=== PATIENT | female | born 1965 | race Caucasian/White ===

== ENCOUNTER 2023-01-06 11:26 | Outpatient (CLI) | payer OTHER, SELFPAY ==
[2023-01-06 11:51] LABS: Basophils Absolute Auto 0.04 K/mm3 (0.00-0.10); Basophils Percent Auto 0.6 % (0.0-1.0); Eosinophils Absolute Auto 0.07 K/mm3 (0.02-0.50); Eosinophils Percent Auto 1.1 % (1.0-6.0); Hematocrit 41.9 % (35.0-49.0); Hemoglobin 13.7 g/dL (12.0-15.0); Immature Granulocyte Absolute 0.01 K/mm3 (0.00-0.00); Immature Granulocyte Percent A 0.2 % (0.0-0.0); Lymphocytes Absolute Auto 2.19 K/mm3 (1.10-4.50); Lymphocytes Percent Auto 35.2 % (18.0-42.0); Mean Corpuscular HGB Conc 32.7 g/dL (32.0-36.0); Mean Corpuscular Hemoglobin 29.7 pg (27.0-31.0); Mean Corpuscular Volume 90.9 fL (78.0-102.0); Mean Platelet Volume 10.6 fl (9.2-11.8); Monocytes Absolute Auto 0.64 K/mm3 (0.10-0.90); Monocytes Percent Auto 10.3 % (2.0-11.0); Neutrophils Absolute Auto 3.3 K/mm3 (1.7-7.2); Neutrophils Percent Auto 52.6 % (50.0-70.0); Platelet Count Result 213 K/mm3 (150-420); Red Blood Count 4.61 M/mm3 (4.20-5.40); Red Cell Distribution Width 11.9 % (11.6-14.4); White Blood Count 6.2 K/mm3 (4.8-10.8)
[2023-01-06 12:44] LABS: Alanine Aminotransferase 27 U/L (14-59); Alkaline Phosphatase 86 U/L (46-116); Anion Gap 9 mmol/L (8-16); Aspartate Amino Transferase 14 U/L (15-37); Bilirubin,Total 0.4 mg/dL (0.00-1.00); Blood Urea Nitrogen 11 mg/dL (7-18); Calcium 9.3 mg/dL (8.5-10.1); Carbon Dioxide 28 mmol/L (21-32); Chloride 108 mmol/L (98-108); Cholesterol 190 mg/dL (0-200); Estimated Glomerular Filt Rate > 60; Glucose 99 mg/dL (70-99); HDL Direct 58 mg/dL (40-60); LDL Cholesterol Calculated 113 mg/dL (<130); Osmolality Calculated 299 mOsm/kg (285-295); Potassium 4.2 mmol/L (3.5-5.1); Sodium 145 mmol/L (136-145); Total Protein 6.8 g/dL (6.4-8.2); Triglycerides 95 mg/dL (0-150)
[2023-01-06 13:03] LABS: Thyroid Stimulating Hormone Reflex 0.99 u/IU/mL (0.36-3.74)
== END 2023-01-06 11:27 | disposition home or self-care (01) ==
LOC: CHSLAB 11:27
PROVIDERS: PCP Family Medicine; Visit Provider Family Medicine
DX: Z00.00 Encounter for general adult medical examination without abnormal findings (principal); E11.9 Type 2 diabetes mellitus without complications; E04.1 Nontoxic single thyroid nodule
CPT/HCPCS: 36415; 80053; 80061; 84443; 85025

== ENCOUNTER 2023-01-11 09:10 | Emergency (ER) | payer OTHER, SELFPAY ==
--- NOTE | ~2023-01-11 | CT_ITS ---
EXAMINATION: CT soft tissue neck w con DATE: 01/11/2023 10:46 INDICATION: Left anterior neck mass. TECHNIQUE: Computed tomography (CT) of the neck was performed with 75 mL Omnipaque-350 intravenous co ntrast. Automated exposure control and iterative reconstruction technique were employed. The dose-fili gth product was 504.32 mGy-cm. COMPARISON: None FINDINGS: There are nodules in the thyroid measuring up to 24 mm. There is a skin marker overlying th e thyroid. There are no pathologically enlarged lymph nodes. The cervical carotid arteries are normal . There is severe cervical spondylosis. There is mild chronic height loss of T3 and T4 vertebral bodi es. IMPRESSION: 1. Multinodular goiter. Thyroid ultrasound is recommended for risk stratification. Reviewed, dictated and finalized at location E. IMPRESSION: 1. Multinodular goiter. Thyroid ultrasound is recommended for risk stratificati on.
[2023-01-11 09:12] VITALS: BP 168/88; PULSE 88; RESP 18; TEMP 37; O2SAT 98
--- NOTE | 2023-01-11 09:20 | ED.NECK ---
HPI - Neck Pain/Injury General Chief Complaint: Unspecified Stated Complaint: throat issue Time Seen by Provider: 01/11/23 09:18 Source: patient Mode of arrival: ambulatory Limitations: no limitations History of Present Illness HPI Narrative: 57-year-old female no significant past medical history presents to the ER with a one-week history of -- lump measuring 1 cm on the left side of the neck. She complains of hoarseness of voice in the morning. It is nontender. No dysphagia. she 1st noticed test 1 week ago MD complaint: other Relieving factors: none Exacerbating factors: none Treatments prior to arrival: none Related Data Home Medications Medication Instructions Recorded Confirmed No Home Medications 07/22/19 01/11/23 Allergies Allergy/AdvReac Type Severity Reaction Status Date / Time Penicillins Allergy Unknown RASH Verified 01/11/23 10:49 codeine AdvReac Unknown N/V; SLOW Verified 01/11/23 10:49 HEART RATE Review of Systems Review of Systems: All systems reviewed & are unremarkable except as noted in HPI and below Constitutional: Constitutional: Reports as per HPI and Reports no additional constitutional complaints Eyes: Eyes: Reports as per HPI and Reports no additional eye complaints ENT: Reports system reviewed and no additional complaints, except as documented and Reports as per HPI Comments: 1 cm swelling over the left anterior neck. Cardiovascular: Cardiovascular: Reports as per HPI and Reports no additional cardiovascular complaints Respiratory: Respiratory: Reports as per HPI and Reports no additional respiratory complaints Gastrointestinal: Gastrointestinal: Reports as per HPI and Reports no additional gastrointestinal complaints Genitourinary: Genitourinary: Reports no additional female genitourinary complaints and Reports as per HPI Musculoskeletal: Musculoskeletal: Reports no additional musculoskeletal complaints and Reports as per HPI Integumentary/Breasts: Skin/Breast: Reports system reviewed and no additional complaints, except as docu and Reports as per HPI Neurologic: Reports system reviewed and no additional complaints, except as documented and Reports as per HPI Psychiatric: Psychiatric: Reports no additional psychiatric complaints and Reports as per HPI Endocrine: Endocrine: Reports no additional endocrine complaints and Reports as per HPI Hematologic/Lymphatic: Hematologic/Lymphatic: Reports no additional hematologic/lymphatic complaints and Reports as per HPI Allergic/Immunologic: Allergic/Immunologic: Reports no additional allergic/immunologic complaints and Reports as per HPI [facility] Past Medical History Medical History (Updated 01/11/23 @ 11:22 by Eliud Ignacio MD) No active medical problems Surgical History Surgical History History of cholecystectomy 1992 History of tubal ligation 1991 Social History Social History Smoking status: Former smoker Exam Const: General: healthy appearing and no acute distress Orientation/consciousness: patient oriented x3 Limitations: no limitations HENMT: Head: normal to inspection Ears: external ears normal Face/Nose/Sinus: Normal external nose present Face and sinus: normal facial exam Mouth: Yes Normal oral and palatal mucosa present Throat: posterior oropharynx normal Eyes: Conjunctivae: conjunctivae normal Pupils: Equal, round and reactive pupils present EOM: EOMs intact bilaterally Direct Ophthalmoscopy: no photophobia Neck: Neck: normal visual inspection, no lymphadenopathy and no meningeal signs Other: 1 cm firm swelling on the left anterior neck. Nontender on palpation. No regional lymphadenopathy. The swelling moves with swallowing. Chest: Chest palpation & inspection: normal inspection of the chest Resp: Effort & Inspection: normal respiratory effort Auscultation:
[2023-01-11 10:10] LABS: Anion Gap 7 mmol/L (8-16); Blood Urea Nitrogen 12 mg/dL (7-18); Calcium 9.1 mg/dL (8.5-10.1); Carbon Dioxide 29 mmol/L (21-32); Chloride 105 mmol/L (98-108); Estimated CRCL calculation 68 ml/min; Estimated Glomerular Filt Rate 58; Glucose 85 mg/dL (70-99); Osmolality Calculated 290 mOsm/kg (285-295); Potassium 4.2 mmol/L (3.5-5.1); Sodium 141 mmol/L (136-145)
[2023-01-11] MEDS: LACTATED RINGERS 1,000 ML 999 ML IV CONT (10:44)
--- NOTE | 2023-01-11 11:34 | PC.NURSE ---
On 01/11/23, the student, [jamie davies ], provided care and completed [facility] documentation on this patient. I have reviewed the student's documentation and agree with the findings.
[2023-01-11 11:47] VITALS: BP 146/96; PULSE 84; RESP 18; TEMP 37.1; O2SAT 100
[2023-01-11 11:51] LABS: Free T4 Free Thyroxine 0.87 ng/dL (0.76-1.46); Thyroid Stimulating Hormone 1.21 uIU/mL (0.36-3.74)
[2023-01-11 11:52] LABS: Free T3 2.38 pg/mL (2.18-3.98)
== END 2023-01-11 11:53 | disposition home or self-care (01) ==
PROVIDERS: Emergency Provider Internal Medicine Critical Care Medicine; PCP Family Medicine
DX: E04.2 Nontoxic multinodular goiter (principal); Z87.891 Personal history of nicotine dependence
CPT/HCPCS: 36415; 70491; 80048; 84439; 84443; 84481; 96360; 99284; J7120; Q9967

== ENCOUNTER 2023-01-16 07:23 | Outpatient (CLI) | payer OTHER, SELFPAY ==
--- NOTE | ~2023-01-16 | US_ITS ---
EXAMINATION: US thyroid DATE: 01/16/2023 07:54 INDICATION: Nontoxic single thyroid nodule TECHNIQUE: Multiple ultrasound images of the thyroid were obtained. COMPARISON: None. FINDINGS: The right thyroid lobe measures 5.6 x 2.3 x 2.0 cm. The left thyroid lobe measures 5.8 x 2.0 x 2.3 c m. 1.2 cm predominantly solid isoechoic nodule with smooth margins and without echogenic foci in the mid right thyroid lobe (TI-RADS 3, mildly suspicious , FNA if >=2.5 cm, annual followup is >=1.5 cm) . There is a second 1.2 cm solid hypoechoic nodule in the inferior right thyroid with ill-defined mar gins and without echogenic foci (TI-RADS 4, moderately suspicious , FNA if >=1.5 cm, annual followup is >=1 cm). 1.1 cm anechoic benign TI RADS 1 cystic nodules in the left thyroid. 2.1 cm solid mixed i so and hypoechoic TI RADS 4 nodule with smooth margins and without echogenic foci in the inferior lef t thyroid lobe. There are couple 1 cm solid taller than wide TI-RADS 4 hyperechoic nodules with desi h to ill-defined margins and without echogenic foci. There are a couple additional subcentimeter hypo echoic TI RADS 4 nodules in the left thyroid lobe. IMPRESSION: 1. Multinodular goiter. Recommend ultrasound-guided biopsy of the 2.1 cm TI RADS 4 nodule at the infe rior left thyroid lobe. Reviewed, dictated and finalized at location A. [employer] IMPRESSION: 1. Multinodular goiter. Recommend ultrasound-guided biopsy of the 2.1 cm TI RAD S 4 nodule at the inferior left thyroid lobe.
== END 2023-01-16 07:24 | disposition home or self-care (01) ==
LOC: CHSIMG 07:24
PROVIDERS: PCP Family Medicine; Visit Provider Family Medicine
DX: Z00.00 Encounter for general adult medical examination without abnormal findings (principal); E04.2 Nontoxic multinodular goiter
CPT/HCPCS: 76536

== ENCOUNTER 2023-01-26 08:56 | Outpatient (CLI) | payer OTHER, SELFPAY ==
--- NOTE | ~2023-01-26 | US_ITS ---
US FNA w image guidance DATE: 01/26/2023 10:14 INDICATION: Multinodular goiter. Ultrasound-guided biopsy of 2.1 cm TI RadS 4 nodule at inferior left thyroid lobe TECHNIQUE: The purpose of the procedure, technique and potential locations were discussed with the dimitry albarado. The patient verbalized understanding and gave consent. Timeout procedure was performed. The skin of the left side of the neck was prepared with sterile Betadine. Sterile drape was placed. Using ultrasound guidance, 6 biopsy needle passes into the lower pole left thyroid mass were made, wi thout patient complaint or apparent complication. The biopsy material was prepared by the pathologist, who indicated that diagnostic cells were obtaine d. COMPARISON: 01/16/2023 thyroid ultrasound examination IMPRESSION: Ultrasound-guided biopsy of 2.1 cm mass of lower pole of left thyroid gland Reviewed, dictated and finalized at [facility]. Reviewed, dictated and finalized at location B. LEASING INFORMATION CLERK IMPRESSION: Ultrasound-guided biopsy of 2.1 cm mass of lower pole of left thyro id gland
== END 2023-01-26 08:57 | disposition home or self-care (01) ==
PROVIDERS: PCP Family Medicine; Visit Provider Family Medicine
DX: E04.1 Nontoxic single thyroid nodule (principal)
CPT/HCPCS: 10005; 88172; 88173; 88305